=== PATIENT | male | born 1980 | race Caucasian/White ===

== ENCOUNTER → 2016-10-19 | Emergency (ER) | payer BC ==
--- NOTE | 2016-10-20 00:01 | NUR ---
PATIENT WAS CALLED SEVERAL TIMES IN 1HR SPAN. PATIENT WAS NOT PRESENT IN WAITING ROOM.PATIENT WAS NOT TRIAGE OR SEEN BY ERMD
== END | disposition left against medical advice (07) ==
LOC: ER 22:44
DX: Z75.3 Unavailability and inaccessibility of health-care facilities (principal)